=== PATIENT | female | born 1950 | race Caucasian/White ===

== ENCOUNTER 2022-10-21 11:36 | Emergency (ER) | payer BC, MEDICAID ==
[~2022-10-21] VITALS: Ht 180.3 cm; Wt 50.0 kg
[~2022-10-21 11:36] MED LIST: CLA10T PO; DIAZ5TAB22 PO; DIPH-186 PO; FOLI-43 PO; HYDR-3686 PO; POTA8TAB46 PO; TOP25T PO
[2022-10-21 11:50] VITALS: BP 133/93
== END 2022-10-21 12:58 | disposition left against medical advice (07) ==
LOC: ER 11:37
DX: R20.0 Anesthesia of skin (principal); Z53.21 Procedure and treatment not carried out due to patient leaving prior to being seen by health care provider
CPT/HCPCS: 99281